=== PATIENT | female | born 1950 | race Asian ===

== ENCOUNTER 2018-06-21 10:49 | Emergency (ER) | payer MEDICARE, OTHER, SELFPAY ==
[2018-06-21 12:49] VITALS: BP 148/78; PULSE 66; RESP 14; TEMP 36.9; O2SAT 98
--- NOTE | 2018-06-21 15:11 | DI.RAD.S_ITS ---
PROCEDURE: XR KNEE RT 3V INDICATIONS: pain, swelling TECHNIQUE: 3 views of the knee were acquired. COMPARISON: None. FINDINGS: Bones: [id number] tricompartment osteoarthritis is seen. No fractures or dislocations. No suspicious bony lesions. No significant patellar subluxation. Soft tissues: There is small to moderate suprapatellar joint effusion. No suspicious soft tissue calcifications. IMPRESSION: [id number] tricompartmental osteoarthritis and small to moderate joint effusion. No acute fracture or dislocation. Dictated by: Janes Alonzo M.D. on 06/21/2018 at 15:42 Approved by: Janes Alonzo M.D. on 06/21/2018 at 15:42
--- NOTE | 2018-06-21 15:19 | ED_ITS ---
HPI - Extremity Injury (Lower) <Iza Nguyen PA-C - Last Filed: 06/21/18 21:53> General Chief Complaint: Extremity Injury, Lower Stated Complaint: EXERCISING PINCH IN R LEG, HARD TO MOVE Time Seen by Provider: 06/21/18 14:48 Source: patient Mode of arrival: wheelchair Limitations: physical limitation History of Present Illness HPI Narrative: This 68-year-old female was doing her typical 5 miles on the treadmill yesterday when she felt a pinch and twisting sensation in her right knee, then pain up and down her anterior and lateral leg. She states that she had a little bit of swelling and has had knee pain since then, especially with trying to walk. She thinks that it is worse with twisting and that there is some instability. She has needed to use crutches at home, and she has applied heat which helps. Tried Tylenol, which does not. She has not tried NSAIDs, can take them but states that typically do not help her pain. She states that the leg felt cold yesterday, and the way the pain moves up and down thinks it could be nerve or muscle spasm. She is not having any back pain. She does not have swelling elsewhere in the leg. No other new c/o today. Related Data Home Medications Medication Instructions Recorded Confirmed aspirin 81 mg PO DAILY 06/21/18 06/21/18 atorvastatin 10 mg PO DAILY 06/21/18 cyclosporine [Restasis] 1 drp OPHTHALMIC (EYE) DIRECTED 06/21/18 06/21/18 dexlansoprazole [Dexilant] 30 mg PO DAILY 06/21/18 06/21/18 felodipine 10 mg PO DAILY 06/21/18 06/21/18 lisinopril 40 mg PO DAILY 06/21/18 06/21/18 Previous Rx's Medication Instructions Recorded cyclobenzaprine 5 mg PO Q8H #14 tab 06/21/18 lidocaine [Lidoderm] 2 patch TOP DAILY #30 each 06/21/18 meloxicam 7.5 mg PO DAILY #7 tab 06/21/18 Allergies Allergy/AdvReac Type Severity Reaction Status Date / Time morphine Allergy Mild Hives Verified 06/21/18 16:34 Review of Systems <Iza Nguyen PA-C - Last Filed: 06/21/18 21:53> Review of Systems ROS Unobtainable: All systems reviewed & are unremarkable except as noted in HPI and below PFSH <JEF Mcmahon Last Filed: 06/21/18 21:53> Medical History GERD (gastroesophageal reflux disease) (Chronic) HTN (hypertension) (Chronic) Hyperlipidemia (Chronic) No pertinent family history (Chronic) Surgical History No pertinent past surgical history (Chronic) Comment: Never smoker Exam <JEF Mcmahon Last Filed: 06/21/18 21:53> Narrative Exam Narrative: GENERAL APPEARANCE: Patient sitting comfortably, in no distress. LUNGS: Clear to auscultation bilaterally. HEART: Rate and rhythm regular without murmur, normal S1 and S2, no S3 or S4. MUSCULOSKELETAL: Right knee has mild effusion, some tenderness over the lateral joint line. Also mildly tender in the inferior part of the TFL distribution. No tenderness over the right hip, calf, or ankle. She has full range of motion of the ankle. Limited active and passive range of motion of the right knee secondary to tenderness. Unable to assess sufficiently for laxity secondary to tenderness. NEUROVASCULAR: Right foot pedal pulses 2+, sensation is grossly intact Initial Vital Signs Initial Vital Signs: Vital Signs Temperature 98.5 F 06/21/18 12:49 Pulse Rate 66 06/21/18 12:49 Respiratory Rate 14 06/21/18 12:49 Blood Pressure 148/78 H 06/21/18 12:49 Pulse Oximetry 98 06/21/18 12:49 <Dai Xiong DO - Last Filed: 06/22/18 08:10> Initial Vital Signs Initial Vital Signs: Vital Signs Temperature 98.5 F 06/21/18 12:49 Pulse Rate 66 06/21/18 12:49 Respiratory Rate 14 06/21/18 12:49 Blood Pressure 148/78 H 06/21/18 12:49 Pulse Oximetry 98 06/21/18 12:49 Course <JEF Mcmahon Last Filed: 06/21/18 21:53> Additional Information: Patient is able to ambulate and bear weight with knee brace and cane Orders Ordered: Discontinued Medications Cyclobenzaprine HCl (Flexeril) 10 mg PO NOW ONE Stop: 06/21/18 15:12 Last Admin: 06/21/18 15:21 Dose: 10 mg Ibuprofen (Advil) 400 mg PO NOW ONE Stop: 06/21/18 15:12 Last Admin: 06/21/18 15:21 Dose: 400 mg Vital Signs - 8 hr 06/21/18 16:10 Pulse Rate 62 Respiratory Rate 16 Blood Pressure [Right Arm] 157/87 H Pulse Oximetry 97 <Dai Xiong DO - Last Filed: 06/22/18 08:10> Orders Ordered: Discontinued Medications Cyclobenzaprine HCl (Flexeril) 10 mg PO NOW ONE Stop: 06/21/18 15:12 Last Admin: 06/21/18 15:21 Dose: 10 mg Ibuprofen (Advil) 400 mg PO NOW ONE Stop: 06/21/18 15:12 Last Admin: 06/21/18 15:21 Dose: 400 mg Vital Signs - 8 hr 06/21/18 16:10 Pulse Rate 62 Respiratory Rate 16 Blood Pressure [Right Arm] 157/87 H Pulse Oximetry 97 MDM - Extremity Injury (Lower) <Iza Nguyen PA-C - Last Filed: 06/21/18 21:53> Imaging Data knee: Radiologist's impression: [place] [address] XRay Report Signed Patient: Ree Preston#: [id number] : 9Acct:[id number] Age/Sex: 68 / FDate of Service: 06/21/18 Loc: ED Accession Number: [id number] Procedure: XR knee RT 3V Ordering Provider: Iza Nguyen P.A-C PROCEDURE: XR KNEE RT 3V INDICATIONS: pain, swelling TECHNIQUE: 3 views of the knee were acquired. COMPARISON: None. FINDINGS: Bones: [id number] tricompartment osteoarthritis is seen. No fractures or dislocations. No suspicious bony lesions. No significant patellar subluxation. Soft tissues: There is small to moderate suprapatellar joint effusion. No suspicious soft tissue calcifications. IMPRESSION: Imvv-hu-jarrrimv tricompartmental osteoarthritis and small to moderate joint effusion. No acute fracture or dislocation. Dictated by: Janes Alonzo M.D. on 06/21/2018 at 15:42 Approved by: Janes Alonzo M.D. on 06/21/2018 at 15:42 Discharge Plan Departure Patient Disposition: Home Clinical Impression: Acute internal derangement of knee Qualifiers: Laterality: right Qualified Code(s): M23.91 - Unspecified internal derangement of right knee Discharge Date/Time: 06/21/18 16:47 Interventions: ED Discharge Assessment Last Done: 06/21/18 16:46 Instructions: Knee Sprain, DI for Knee Effusion Activity Restrictions/Additional Instructions: Since you are feeling better, please continue to wear the knee brace whenever you are putting weight on the knee as this will help keep from pivoting and shifting. Use the cane that we gave you. Rest the knee as much as possible. I have sent in a once daily anti-inflammatory pain medicine called meloxicam for you to take as well as a prescription for the muscle relaxant that you had here (remember it can make you sleepy and to avoid driving or other activities where you need to be alert). You can also use the pain patches for 12 hr daily. As we talked about, I suspect you have a ligament or meniscal injury today, however I cannot fully examine you due to your pain. This is not unusual right after knee injury, so [place] as we talked about for a repeat exam. You may need further treatment or imaging such as an MRI depending upon exam findings at that time. Prescriptions: New meloxicam 7.5 mg tablet 7.5 mg PO DAILY Qty: 7 RF: 0 lidocaine [Lidoderm] 5 % adhesive patch,medicated 2 patch TOP DAILY Qty: 30 RF: 0 cyclobenzaprine 5 mg tablet 5 mg PO Q8H Qty: 14 RF: 0 No Action atorvastatin 10 mg tablet 10 mg PO DAILY RF: 0 felodipine 10 mg tablet extended release 24 hr 10 mg PO DAILY RF: 0 lisinopril 40 mg tablet 40 mg PO DAILY RF: 0 Restasis 0.05 % dropperette 1 drp ophthalmic (eye) DIRECTED RF: 0 Dexilant 30 mg capsule,biphase delayed releas 30 mg PO DAILY RF: 0 aspirin 81 mg tablet,delayed release (DR/EC) 81 mg PO DAILY RF: 0 Referrals: Teresita Rodriguez MD [Primary Care Provider] - <Dai Xiong DO - Last Filed: 06/22/18 08:10> Cosign ED Attending Cosbhartiature Attestation: I was immediately available in the department for consultation. Documentation has been reviewed. I agree with assessment and plan.
[2018-06-21] MEDS: CYCLOBENZAPRINE 10 MG TABLET PO (15:21)
[2018-06-21] MEDS: IBUPROFEN 400 MG TABLET PO (15:21)
[2018-06-21 16:10] VITALS: BP 157/87; PULSE 62; RESP 16; O2SAT 97
== END 2018-06-21 16:47 | disposition home or self-care (01) ==
PROVIDERS: Emergency Provider Internal Medicine
DX: M23.91 Unspecified internal derangement of right knee (principal)
CPT/HCPCS: 73562; 99283

== ENCOUNTER → 2018-11-12 12:23 | Outpatient (CLI) | payer MEDICARE, OTHER, SELFPAY ==
--- NOTE | 2018-11-12 | DI.MRI.S_ITS ---
PROCEDURE: MR KNEE RT WO CON INDICATIONS: Right knee injury TECHNIQUE: Noncontrast sagittal PD fast spin echo and T2 fast spin echo with fat saturation, sagittal 3-D FLASH with fat saturation; coronal T1 spin echo and PD fast spin echo with fat saturation, and axial PD fast spin echo with fat saturation through the knee. COMPARISON: None. FINDINGS: Image quality: Excellent. Menisci: Oblique tear is seen involving posterior horn of medial meniscus extending to inferior articulating surface. Complex tear is seen involving anterior horn, body and posterior horn of lateral meniscus extending to superior articulating surface.. The meniscal root ligaments appear intact. Cruciate ligaments: The anterior and posterior cruciate ligaments appear intact. Medial structures: The medial collateral ligament appears intact. The posterior oblique ligament, semimembranosus tendon insertions, oblique popliteal ligament, and meniscocapsular junction appear intact. Visualized portions of the pes anserinus tendons appear normal. No abnormal bursal fluid. Lateral structures: The lateral collateral ligament, long and short heads of the biceps femoris tendon appear intact. The popliteus tendon appears normal; the popliteofibular ligament appears intact. The posterosuperior and anteroinferior popliteomeniscal fascicles appear intact. The arcuate and fabellofibular ligaments appear intact, on either side of the lateral inferior geniculate artery. Iliotibial band appears normal. Anterior structures: The quadriceps and patellar tendons appear intact. Patellar alignment is normal. No femoral trochlear dysplasia or ventral trochlear prominence. No edema in the infrapatellar fat pad. Bones and cartilage: No bone marrow contusions or fractures. Mild tricompartment osteophyte is and chondromalacia is seen more prominent involving lateral femoral tibial compartment. Joint space: There is small to moderate knee joint fluid. No Myers's cyst. Normal appearing synovial plicae are incidentally noted. IMPRESSION: 1. Mild to moderate tricompartmental osteoarthritis most prominent in lateral femoral tibial compartment. Small to moderate amount of joint fluid. 2. Cruciate ligaments are intact. 3. Oblique tear involving posterior horn of medial meniscus extending to inferior articulating surface. Complex tear throughout lateral meniscus extending to superior articulating surface. Dictated by: Janes Alonzo M.D. on 11/12/2018 at 14:43 Approved by: Janes Alonzo M.D. on 11/12/2018 at 14:45
== END ==
PROVIDERS: Visit Provider Orthopaedic Surgery
DX: S83.271A Complex tear of lateral meniscus, current injury, right knee, initial encounter (principal); S83.241A Other tear of medial meniscus, current injury, right knee, initial encounter; M17.11 Unilateral primary osteoarthritis, right knee
CPT/HCPCS: 73721

== ENCOUNTER → 2021-03-06 07:44 | Outpatient (CLI) | payer MEDICARE, OTHER, SELFPAY ==
--- NOTE | 2021-03-06 | DI.ECHO.S_ITS ---
[facility]---------+ [facility] +---------+ : : [address] : [address] : : : : [id number] : : : : Phone: [phone] +---------+ Echocardiogram Report + + :Name: NICKY GARCIA Study Date: 03/06/2021 Height: 65 in : :[facility] ReadingLocation: Weight: 118 lb : : Gender: Female BSA: 1.6 m2 : :: 1950 Age: 70 yrs BP: 147/82 mmHg: :Reason For Study: MITRAL INSUFFICIENCY : :Ordering Physician: SULMA, : :ALICJA Performed By: Lissette Molina : :Referring: ALICJA MACHADO : + + Interpretation Summary 1) Normal left ventricular thickness, size, wall motion, and systolic function (EF 55-60%). 2) Normal right ventricular size and function. 3) Mild mitral regurgitation and mild aortic regurgitation present. 4) The ascending aorta is at the upper limits of normal in size at 4.0cm. 5) Compared to the Echo done 08/17/2015, mitral regurgitation has decreased from mild-moderate to mild on this study. Procedure: A two-dimensional transthoracic echocardiogram with color flow and Doppler was performed. The study quality was technically adequate. Comparison is made with the echocardiogram of 08/17/2015. The patient was in sinus rhythm with heart rates between 51-58 bpm during the exam. Left Ventricle: The left ventricle is normal in size and wall thickness. The ejection fraction is estimated to be 55-60%. Left ventricular systolic function appears normal without focal wall motion abnormalities. Right Ventricle: The right ventricle is normal in size and function. Atria: The left atrium is moderately dilated. Right atrial size is normal. There is no Doppler evidence for an interatrial shunt. Mitral Valve: The mitral valve leaflets are mildly calcified. There is mild mitral annular calcification. There is mild mitral regurgitation. Aortic Valve: The aortic valve is trileaflet. The aortic valve opens well. There is no aortic valve stenosis. There is mild aortic regurgitation. Tricuspid Valve: The tricuspid valve is normal in structure and function. There is mild tricuspid regurgitation. The right ventricular systolic pressure is estimated to be at least 23 mmHg based on an estimated right atrial pressure of 3 mm Hg. Pulmonic Valve: The pulmonic valve is not well visualized. There is no pulmonic valvular regurgitation. Great Vessels: The aortic root is normal size. The ascending aorta is at the upper limits of normal in size. The IVC is of normal diameter and collapses greater than 50% with a sniff. This suggests a low right atrial pressure of 3 mm Hg. Pericardium/ Pleura There is no pericardial effusion. There is no pleural effusion. MMode/2D Measurements & Calculations LVIDd: 4.8 cm LVOT diam: 2.0 cm LVIDs: 3.1 cm Ao root diam: 4.0 cm FS: 35.1 % asc Aorta Diam: 4.0 cm IVSd: 0.94 cm Ao Arch Diam (Prox Trans): 2.8 cm LVPWd: 0.66 cm LV hensley. diameter/BSA (cm/m^2): 3.1 LV sys. diameter/BSA (cm/m^2): 2.0 LA A2 area: 22.1 cm2 RA long axis: 4.7 cm LA A4 area: 17.8 cm2 RA area: 16.6 cm2 LA length (vol): 4.9 cm RA vol: 50.5 ml LA vol: 67.8 ml RA : 32.0 ml/m2 LA vol index: 42.9 ml/m2 IVC diam: 1.5 cm RVD1 (basal): 3.5 cm TAPSE: 2.2 cm Doppler Measurements & Calculations Ao V2 max: 140.1 cm/sec LVOT Max Domingo: 94.0 cm/sec Ao V2 mean: 88.3 cm/sec LV V1 max P.5 mmHg Ao max P.8 mmHg LV V1 VTI: 20.4 cm Ao mean P.6 mmHg MAURICIO(I,D): 2.2 cm2 Ao V2 VTI: 28.6 cm MAURICIO(V,D): 2.0 cm2 sev ratio: 0.72 MAURICIO indexed to BSA (cm^2/m^2): 1.4 AI P1/2t: 920.1 msec AI dec slope: 143.3 cm/sec2 MV E max domingo: 77.2 cm/sec TR max domingo: 224.5 cm/sec MV A max domingo: 81.7 cm/sec TR max P.2 mmHg MV E/A: 0.95 PA V2 max: 90.3 cm/sec Med Peak E' Domingo: 7.8 cm/sec PA V2 mean: 65.8 cm/sec E/E' med: 9.9 PA mean P.9 mmHg Lat Peak E' Domingo: 9.0 cm/sec PA pr(Accel): 43.0 mmHg E/E' lat: 8.6 E/e' average: 9.2 MV dec time: 0.24 sec SV(OT): 61.7 ml Reading Physician:11:20 AM
== END ==
PROVIDERS: PCP Internal Medicine; Referring Provider Internal Medicine Cardiovascular Disease; Visit Provider Internal Medicine Cardiovascular Disease
DX: I08.3 Combined rheumatic disorders of mitral, aortic and tricuspid valves
CPT/HCPCS: 93306

== ENCOUNTER → 2022-07-03 10:11 | Outpatient (CLI) | payer MEDICARE, OTHER, SELFPAY ==
--- NOTE | 2022-07-03 | DI.ECHO.S_ITS ---
[facility] +---------+ [facility] +---------+ : : [address] : [address] : [address] : : : : [id number] : : : : Phone: [phone] +---------+ Echocardiogram Report + + :Name: NICKY GARCIA Study Date: 07/03/2022 Height: 65 in : :[facility] ReadingLocation: Weight: 120 lb : : Gender: Female BSA: 1.6 m2 : :: 1950 Age: 72 yrs BP: 133/81 mmHg: :Reason For Study: ATRIAL FIBRILLATION HR: 50 : :Ordering Physician: SULMA, : :ALICJA Performed By: RACHELLE URBANO : :Referring: ALICJA MACHADO : + + Interpretation Summary 1) Normal left ventricular thickness, size, wall motion, and systolic function (EF 55-60%). 2) Normal right ventricular size and function. 3) There is mild to moderate aortic regurgitation. 4) Compared to the Echo done 03/06/2021, aortic regurgitation has increased from mild to mild-moderate on this study. Procedure: A two-dimensional transthoracic echocardiogram with color flow and Doppler was performed. The study quality was technically adequate. Comparison is made with the echocardiogram of 03/06/2021. The patient was in normal sinus rhythm during the exam. Left Ventricle: The left ventricle is normal in size and wall thickness. Left ventricular systolic function is normal. The ejection fraction is estimated to be 55-60%. Diastolic parameters suggest a relaxation abnormality of the left ventricle, consistent with probable normal filling pressures. Right Ventricle: The right ventricle is normal in size and function. Atria: The left atrium is moderately dilated. The right atrium is normal in size. There is no Doppler evidence for an interatrial shunt. Mitral Valve: The mitral valve leaflets are mildly calcified. There is mild mitral annular calcification. There is mild mitral regurgitation. Aortic Valve: The aortic valve is trileaflet. The aortic valve opens well. There is no aortic valve stenosis. There is mild to moderate aortic regurgitation. Tricuspid Valve: The tricuspid valve is normal in structure and function. There is mild tricuspid regurgitation. The right ventricular systolic pressure is estimated to be at least 22 mmHg based on an estimated right atrial pressure of 3 mm Hg. Pulmonic Valve: The pulmonic valve is normal in structure and function. There is no pulmonic valvular regurgitation. Great Vessels: The aortic root is normal size. The ascending aorta could not be visualized. The IVC is of normal diameter and collapses greater than 50% with a sniff. This suggests a low right atrial pressure of 3 mm Hg. Pericardium/ Pleura There is no pericardial effusion. There is no pleural effusion. MMode/2D Measurements & Calculations LVIDd: 4.8 cm LVOT diam: 1.8 cm LVIDs: 3.2 cm Ao root diam: 3.6 cm FS: 33.3 % IVSd: 0.60 cm LVPWd: 0.70 cm LV hensley. diameter/BSA (cm/m^2): 3.0 LV sys. diameter/BSA (cm/m^2): 2.0 LA A2 area: 21.9 cm2 RA long axis: 4.8 cm LA A4 area: 13.9 cm2 LA length (vol): 5.1 cm LA vol: 50.5 ml LA vol index: 31.7 ml/m2 LVLs ap4: 5.8 cm LVLd ap2: 7.4 cm LVLs ap2: 6.4 cm TAPSE_phl: 2.0 cm Doppler Measurements & Calculations Ao V2 max: 143.0 cm/sec LVOT Max Domingo: 115.0 cm/sec Ao V2 mean: 93.5 cm/sec LV V1 max P.3 mmHg Ao max P.2 mmHg LV V1 VTI: 27.0 cm Ao mean P.0 mmHg MAURICIO(I,D): 2.1 cm2 Ao V2 VTI: 32.1 cm MAURICIO(V,D): 2.0 cm2 sev ratio: 0.84 MAURICIO indexed to BSA (cm^2/m^2): 1.3 AI P1/2t: 1024 msec AI dec slope: 133.0 cm/sec2 MV E max domingo: 79.7 cm/sec TR max domingo: 219.0 cm/sec MV A max domingo: 90.0 cm/sec TR max P.2 mmHg MV E/A: 0.89 PA V2 max: 87.5 cm/sec Med Peak E' Domingo: 6.5 cm/sec PA V2 mean: 61.3 cm/sec E/E' med: 12.3 PA mean P.0 mmHg Lat Peak E' Domingo: 8.6 cm/sec PA pr(Accel): 4.8 mmHg E/E' lat: 9.3 E/e' average: 10.8 MV dec time: 0.28 sec SV(LVOT): 68.7 ml AV P1/2t-pr_phl: 1021 msec AV VR_phl: 0.80 MAURICIO(VTI)/BSA_phl: 1.4 MV P1/2t-pr_phl: 81.0 msec Reading Physician:10:51 AM
--- NOTE | 2022-07-03 | DI.CT.S_ITS ---
PROCEDURE: CT CHEST WO CON INDICATIONS: Paroxysmal atrial fibrillation TECHNIQUE: Noncontrast 5 mm thick sections acquired from the pulmonary apices to the posterior costophrenic angles. 1 mm lung window, 5 mm thick coronal and sagittal and 7 mm axial MIP reformats were then acquired. For radiation dose reduction, the following was used: automated exposure control, adjustment of mA and/or kV according to patient size. COMPARISON: None. FINDINGS: Image quality: Excellent. Lungs and pleura: No acute air space opacities. No pleural effusions or pneumothorax. Central and peripheral airways are patent and normal in caliber. Mediastinum: Heart size is normal. No pericardial effusion. No mediastinal adenopathy by size criteria. Mild dilation of the ascending aorta, measuring 4.2 centimeter. Esophagus is normal in caliber. No hiatal hernia. Bones and chest wall: No suspicious bony lesions. No vertebral body compression fractures. No axillary or supraclavicular adenopathy by size criteria. Thyroid gland contains a subcentimeter thyroid nodule, which does not require follow-up per ACR consensus guidelines. A few solid pulmonary nodules, largest measuring 5 millimeter solid nodule, right lower lobe (3/172). Abdomen: Visualized upper abdominal solid organs and bowel loops appear normal in the absence of contrast. IMPRESSION: 1. A few solid pulmonary nodules, largest measuring 5 millimeters in the right lower lobe. Consider 12 month follow-up if at high risk for developing lung cancer, per Fleischner Society guidelines. 2. Mild dilation of the ascending aorta, measuring 4.2 centimeter. Dictated by: Rg Navarro M.D. on 07/03/2022 at 12:33 Approved by: Rg Navarro M.D. on 07/03/2022 at 12:37
== END ==
PROVIDERS: PCP Internal Medicine; Referring Provider Internal Medicine; Visit Provider Internal Medicine
DX: I48.0 Paroxysmal atrial fibrillation (principal); I35.1 Nonrheumatic aortic (valve) insufficiency; R91.8 Other nonspecific abnormal finding of lung field; I77.819 Aortic ectasia, unspecified site
CPT/HCPCS: 71250; 93306